=== PATIENT | female | born 1980 | race Caucasian/White ===

== ENCOUNTER 2016-12-03 21:21 | Emergency (ER) | payer MEDICAID ==
[~2016-12-03] VITALS: Ht 154.9 cm; Wt 85.3 kg
[2016-12-03 22:58] LABS: ALBUMIN 3.5 g/dL (3.4-5.0); ALKALINE PHOSPHATASE 89 U/L (46-116); ALT/SGPT 29 U/L (14-59); AST/SGOT 12 U/L (15-37); BILIRUBIN TOTAL 0.4 mg/dL (0.20-1.00); CALCIUM 8.8 mg/dL (8.5-10.1); CARBON DIOXIDE 27.2 mmol/L (21-32); CREATININE SERUM 0.7 mg/dL (0.6-1.0); GFR1 > 60 mL/min; GLUCOSE SERUM 102 mg/dL (74-106); LIPASE 192 IU/L (73-393); TOTAL PROTEIN, SERUM 7.3 g/dL (6.4-8.2)
[2016-12-03 23:03] LABS: CHLORIDE SERUM 106 mmol/L (98-107); POTASSIUM SERUM 3.5 mmol/L (3.5-5.1); SODIUM SERUM 142 mmol/L (136-145)
[2016-12-04 00:07] VITALS: BP 110/68
== END 2016-12-04 00:07 | disposition home or self-care (01) ==
LOC: ED 21:21
PROVIDERS: Emergency Medicine
DX: M54.5 Low back pain (principal); R10.10 Upper abdominal pain, unspecified; Z86.19 Personal history of other infectious and parasitic diseases; Z90.49 Acquired absence of other specified parts of digestive tract
CPT/HCPCS: J1885

== ENCOUNTER 2018-07-30 18:06 | Emergency (ER) | payer SELFPAY ==
[~2018-07-30] VITALS: Ht 165.1 cm; Wt 88.5 kg
[2018-07-30 18:09] VITALS: Ht 165.1 cm; Wt 88.5 kg
[2018-07-30 19:58] VITALS: BP 104/70
== END 2018-07-30 19:58 | disposition home or self-care (01) ==
LOC: ED 18:06
DX: J40 Bronchitis, not specified as acute or chronic (principal); J06.9 Acute upper respiratory infection, unspecified; R07.89 Other chest pain
CPT/HCPCS: J1885; Q0092